=== PATIENT | female | born 1965 | race Caucasian/White ===

== ENCOUNTER → 2018-09-12 14:15 | Outpatient (CLI) | payer MEDICARE, MEDICAID, SELFPAY ==
--- NOTE | 2018-09-12 | DI.CT.S_ITS ---
PROCEDURE: CT ABDOMEN PELVIS W CON INDICATIONS: ABDOMINAL PAIN TECHNIQUE: After the administration of oral and intravenous contrast, 5 mm thick sections acquired from the diaphragms to the symphysis. 5 mm thick coronal and sagittal reformats were performed. For radiation dose reduction, the following was used: automated exposure control, adjustment of mA and/or kV according to patient size. COMPARISON: None. FINDINGS: Image quality: Quality of visualization is limited by extensive metal artifact from surgical lips over the epigastrium and at the esophagogastric junction region of the upper left abdomen.. ABDOMEN: Lung bases: Lung bases are clear. Heart size is normal. Solid organs: Liver is normal in size and enhancement. Gallbladder appears surgically absent. Biliary system is non-dilated. Pancreas enhances normally. Spleen is normal in size and enhancement. No adrenal nodules. Kidneys are normal in size and enhancement, without hydronephrosis. Peritoneum and bowel: Stomach, small bowel, and colon loops are normal in caliber and wall thickness. No free fluid or air. There is moderate colonic obstipation. This becomes more prominent as the pelvis is approached. Nodes and vessels: No retroperitoneal or mesenteric adenopathy. Aorta and inferior vena cava are normal in caliber. Miscellaneous: No ventral hernias. PELVIS: Genitourinary: Bladder wall thickness is normal. Miscellaneous: No inguinal hernias or adenopathy. Relatively prominent colonic obstipation within the rectum and sigmoid area. A definite intestinal obstruction or perforation is not found. Bones: No suspicious bony lesions. No vertebral body compression fractures. IMPRESSION: Extensive surgical clips as discussed over the epigastrium and left upper quadrant, producing metal artifact partially obscuring visualization of portions of the left abdomen. More inferiorly it is noted that oral contrast has transited through much of the small bowel but has not extended into the ascending colon and there is colonic obstipation involving the right and left colon and sigmoid and rectum that is relatively prominent in this patient. Dictated by: Giorgio Muse M.D. on 09/12/2018 at 16:19 Approved by: Giorgio Muse M.D. on 09/12/2018 at 16:22
[2018-09-12 15:13] LABS: Alanine Aminotransferase 29 IU/L (9-52); Alkaline Phosphatase 120 U/L (38-126); Aspartate Aminotransferase 30 IU/L (14-36); BUN Creatinine Ratio 18.8 (6-22); Bilirubin Total 0.4 mg/dL (0.2-1.3); Blood Urea Nitrogen 15 mg/dL (7-17); Calcium 9.2 mg/dL (8.4-10.2); Carbon Dioxide 26 mmol/L (22-32); Chloride 103 mmol/L (98-107); Estimated Glomerular Filt Rate > 60.0 mL/min (>60); HEMOLYSIS < 15 (0-50); Lipase 107 U/L (23-300); Potassium 3.5 mmol/L (3.4-5.1); Sodium 143 mmol/L (137-145)
[2018-09-12 15:14] LABS: Add Manual Diff / Slide Review NO; Basophils Absolute Auto 100 /uL (0-100); Basophils Percent Auto 1.1 % (0-2); Eosinophils Absolute Auto 100 /uL (0-450); Hematocrit 34.8 % (36-46); Lymphocytes Absolute Auto 3900 /uL (1100-4500); Lymphocytes Percent Auto 43.7 % (25-40); Mean Corpuscular HGB Conc 31.6 % (30-36); Mean Corpuscular Hemoglobin 23.6 PG (26-34); Mean Corpuscular Volume 74.8 fL (80-100); Monocytes Absolute Auto 900 /uL (0-900); Monocytes Percent Auto 9.6 % (3-14); Neutrophils Absolute Auto 4000 /uL (1500-7000); Neutrophils Percent Auto 44.6 % (50-75); Platelet Count 321 X10^3/uL (150-400); Red Blood Cell Count 4.66 X10^6/uL (4.0-5.2)
[2018-09-12 15:29] LABS: Glucose 30 mg/dL (70-100)
== END ==
PROVIDERS: PCP Internal Medicine; Visit Provider Internal Medicine
DX: R10.84 Generalized abdominal pain (principal); K59.00 Constipation, unspecified
CPT/HCPCS: 36415; 74177; 80048; 82247; 83690; 84075; 84450; 84460; 85025

== ENCOUNTER 2018-09-14 13:16 | Emergency (ER) | payer MEDICARE, MEDICAID, SELFPAY ==
[2018-09-14 13:24] VITALS: BP 149/76; PULSE 69; RESP 16; TEMP 37; O2SAT 97; BMI 20.9
--- NOTE | 2018-09-14 13:41 | ED.ABDPAIN ---
HPI - Abdominal Pain <Tiara Arzola PA-C - Last Filed: 09/14/18 21:15> General Chief Complaint: Abdominal Pain Stated Complaint: CONSTIPATION X 1 WEEK Time Seen by Provider: 09/14/18 13:37 Source: patient Mode of arrival: ambulatory Limitations: no limitations History of Present Illness HPI narrative: This 53-year-old female comes to ED secondary to worsening abdominal pain and constipation. She states that she does not have any history of constipation, however she began to have abdominal discomfort maybe 10 days ago, and states that her last large/normal sized bowel movement 1 week ago was very bloody and painful. She has not had a bowel movement since, but states she feels like there is a blockage and stool is leaking around. She states her rectal area is very painful. She states abdominal pain is generalized constant, sometimes gets a little bit better when she changes positions. She states that she had a CT scan done yesterday, and states that she felt like she had to urinate after yesterday, has not urinated since then. She states she has not eaten anything in the last 2 days. She has been having ice chips but little fluid. She states she has nausea but no vomiting. She denies any fever. She denies any recent illness, cough, upper respiratory symptoms, chest pain or dyspnea. She history of a [employer] weight loss procedure, states since then for the last 15 years bowel movements are very regular. She saw her PCP 2 days ago, CT was done and planned for colonoscopy. She has tried [id number] Ex-Lax, milk of magnesia, stool softeners. PCP advised her to start MiraLax, has had only 1 dose of that. Related Data Home Medications Medication Instructions Recorded Confirmed valacyclovir [Valtrex] 1,000 mg PO BID #0 01/28/16 buprenorphine-naloxone 1 film SUBLINGUAL DAILY 09/14/18 escitalopram oxalate 20 mg PO DAILY 09/14/18 09/14/18 gabapentin 300 mg PO QID 09/14/18 09/14/18 naloxone [Narcan] 1 spray INTRANASAL PRN PRN 09/14/18 09/14/18 Previous Rx's Medication Instructions Recorded amoxicillin-pot clavulanate 1 tab PO Q12H #10 tab 09/14/18 [Augmentin] Allergies Allergy/AdvReac Type Severity Reaction Status Date / Time No Known Drug Allergies Allergy Verified 09/14/18 13:26 Review of Systems <Tiara Arzola PA-C - Last Filed: 09/14/18 21:15> Review of Systems ROS Unobtainable: All systems reviewed & are unremarkable except as noted in HPI and below PFSH <Tiara Arzola PA-C - Last Filed: 09/14/18 21:15> Medical History (Updated 09/14/18 @ 17:10 by Tiara Arzola PA-C) Borderline personality disorder (Chronic) Chronic fatigue syndrome with fibromyalgia (Chronic) Depression with anxiety (Chronic) History of pulmonary embolism (Chronic) Vitamin B12 deficiency (Chronic) Surgical History (Updated 09/14/18 @ 14:37 by Tiara Arzola PA-C) Status post biliopancreatic diversion with duodenal switch (Acute) Status post (Chronic) Status post cholecystectomy (Chronic) Status post hysterectomy (Chronic) Social History (Updated 09/14/18 @ 14:37 by Tiara Arzola PA-C) Smoking Status: Former smoker Social History (Updated 09/14/18 @ 14:37 by Tiara Arzola PA-C) Smoking Status: Former smoker Exam <Tiara Arzola PA-C - Last Filed: 09/14/18 21:15> Narrative Exam Narrative: GENERAL APPEARANCE: Patient resting on right side, in NAD HEENT: PERRL, EOMI, no scleral icterus, conjunctivae pink NECK: Supple LUNGS: Clear to auscultation bilaterally. HEART: Rate and rhythm regular, normal S1 and S2, no S3 or S4. ABDOMEN: Soft, nondistended, bowel sounds present x 4 quadrants, no masses palpable, generalized tenderness throughout, no guarding or rebound. No CVAT EXTREMITIES: No edema, no cyanosis DERMATOLOGIC: No jaundice or exanthem NEUROLOGIC: Alert and oriented with normal speech and coordination RECTAL: The perirectal skin is erythematous and chaffed, tender. There is light brown, malodorous stool leakage, no palpable mass stool in vault, occult blood negative x1 Initial Vital Signs Initial Vital Signs: Vital Signs Temperature 98.6 F 09/14/18 13:24 Pulse Rate 69 09/14/18 13:24 Respiratory Rate 16 09/14/18 13:24 Blood Pressure 149/76 H 09/14/18 13:24 Pulse Oximetry 97 09/14/18 13:24 <Albin Maharaj DO - Last Filed: 09/14/18 23:47> Initial Vital Signs Initial Vital Signs: Vital Signs Temperature 98.6 F 09/14/18 13:24 Pulse Rate 69 09/14/18 13:24 Respiratory Rate 16 09/14/18 13:24 Blood Pressure 149/76 H 09/14/18 13:24 Pulse Oximetry 97 09/14/18 13:24 Course <Tiara Arzola PA-C - Last Filed: 09/14/18 21:15> Additional Information: Patient has had thin watery stool, no large volume output. Enema/attempt at disimpaction was ineffective as blockage is proximal to sigmoid. She does not have obstruction but did have urinary retention secondary to the constipation. She had improvement in her pain after catheter placed. She was unable to finish Mag citrate while here but is sipping it down. She elected to have catheter removed and return home. Will add apple juice and prune juice to this and will finish at home. Advised if she starts to have vomiting, feeling worse, or unable to urinate again, she needs to return, and she is agreeable. Did start Augmentin as she did have bacteriuria on cath specimen though has not had any clear evidence of urinary infection. Advised follow-up with PCP and proceed with referral for colonoscopy as had been discussed per last note. Orders Ordered: ED Orders 09/14/18 15:00 Complete Blood Count AUTO DIFF Stat Comprehensive Metabolic Panel Stat Lactate (Lactic Acid) Stat Lipase Stat Magnesium Stat Urine Culture Stat Urine Microscopic Stat Discontinued Medications Amoxicillin/Clavulanate Potassium (Augmentin 500-125 Mg) 1 tab PO NOW ONE Stop: 09/14/18 20:37 Last Admin: 09/14/18 20:52 Dose: 1 tab Ketorolac Tromethamine (Toradol) 30 mg IV NOW ONE Stop: 09/14/18 15:31 Last Admin: 09/14/18 15:40 Dose: 30 mg Magnesium Citrate (Magnesium Citrate) 300 ml PO NOW ONE Stop: 09/14/18 16:53 Last Admin: 09/14/18 17:08 Dose: 300 ml Mineral Oil (Mineral Oil Enema) 1 each MI NOW ONE Stop: 09/14/18 15:19 Last Admin: 09/14/18 16:19 Dose: 1 each Vital Signs - 8 hr 09/14/18 21:05 Pulse Rate 64 Respiratory Rate 17 Blood Pressure [Right Arm] 129/73 Pulse Oximetry 98 <Albin Maharaj DO - Last Filed: 09/14/18 23:47> Orders Ordered: ED Orders 09/14/18 15:00 Complete Blood Count AUTO DIFF Stat Comprehensive Metabolic Panel Stat Lactate (Lactic Acid) Stat Lipase Stat Magnesium Stat Urine Culture Stat Urine Microscopic Stat Discontinued Medications Amoxicillin/Clavulanate Potassium (Augmentin 500-125 Mg) 1 tab PO NOW ONE Stop: 09/14/18 20:37 Last Admin: 09/14/18 20:52 Dose: 1 tab Ketorolac Tromethamine (Toradol) 30 mg IV NOW ONE Stop: 09/14/18 15:31 Last Admin: 09/14/18 15:40 Dose: 30 mg Magnesium Citrate (Magnesium Citrate) 300 ml PO NOW ONE Stop: 09/14/18 16:53 Last Admin: 09/14/18 17:08 Dose: 300 ml Mineral Oil (Mineral Oil Enema) 1 each MI NOW ONE Stop: 09/14/18 15:19 Last Admin: 09/14/18 16:19 Dose: 1 each Vital Signs - 8 hr 09/14/18 21:05 Pulse Rate 64 Respiratory Rate 17 Blood Pressure [Right Arm] 129/73 Pulse Oximetry 98 MDM - Abdominal Pain <Tiara Arzola PA-C - Last Filed: 09/14/18 21:15> Lab Data Result diagrams: 09/14/18 15:00 09/14/18 15:00 Lab Results 09/14/18 09/14/18 09/14/18 Range/Units 15:00 15:00 15:00 WBC 7.4 (4.5-11.0) X10^3/uL RBC 4.35 (4.0-5.2) X10^6/uL Hgb 10.5 L (12.0-16.0) g/dL Hct 32.3 L (36-46) % MCV 74.4 L (80-100) fL MCH 24.0 L (26-34) PG MCHC 32.3 (30-36) % RDW 18.6 H (11.6-14.8) % Plt Count 224 (150-400) X10^3/uL Neut % (Auto) 72.5 (50-75) % Lymph % (Auto) 19.3 L (25-40) % [place] % (Auto) 6.8 (3-14) % Eos % (Auto) 0.6 L (2-4) % Baso % (Auto) 0.8 (0-2) % Neut # (Auto) 5400 (8014-5957) /uL Lymph # (Auto) 1400 (4579-7490) /uL [place] # (Auto) 500 (0-900) /uL Eos # (Auto) 0 (0-450) /uL Baso # (Auto) 100 (0-100) /uL Sodium 138 (137-145) mmol/L Potassium 4.3 (3.4-5.1) mmol/L Chloride 99 (98-107) mmol/L Carbon Dioxide 28 (22-32) mmol/L BUN 11 (7-17) mg/dL Creatinine 0.90 (0.52-1.04) mg/dL Estimated GFR > 60.0 (>60) mL/min BUN/Creatinine Ratio 12.2 (6-22) Glucose 99 (70-100) mg/dL Lactate 0.9 (0.7-2.1) mmol/L Calcium 9.4 (8.4-10.2) mg/dL Magnesium 1.8 (1.6-2.3) mg/dL Total Bilirubin 0.5 (0.2-1.3) mg/dL AST 23 (14-36) IU/L ALT 26 (9-52) IU/L Alkaline Phosphatase 128 H (38-126) U/L Total Protein 7.4 (6.3-8.2) g/dL Albumin 4.2 (3.5-5.0) g/dL Globulin 3.2 (1.7-4.1) g/dL Albumin/Globulin Ratio 1.3 (1.0-2.8) Lipase 94 (23-300) U/L Urine RBC (0-5/HPF) Urine WBC (0-5/HPF) Ur Squamous Epith Cells (0-5/HPF) Urine Bacteria (None) Ur Culture Indicated? 09/14/18 Range/Units 15:00 WBC (4.5-11.0) X10^3/uL RBC (4.0-5.2) X10^6/uL Hgb (12.0-16.0) g/dL Hct (36-46) % MCV (80-100) fL MCH (26-34) PG MCHC (30-36) % RDW (11.6-14.8) % Plt Count (150-400) X10^3/uL Neut % (Auto) (50-75) % Lymph % (Auto) (25-40) % [place] % (Auto) (3-14) % Eos % (Auto) (2-4) % Baso % (Auto) (0-2) % Neut # (Auto) (5079-9606) /uL Lymph # (Auto) (3466-9439) /uL [place] # (Auto) (0-900) /uL Eos # (Auto) (0-450) /uL Baso # (Auto) (0-100) /uL Sodium (137-145) mmol/L Potassium (3.4-5.1) mmol/L Chloride (98-107) mmol/L Carbon Dioxide (22-32) mmol/L BUN (7-17) mg/dL Creatinine (0.52-1.04) mg/dL Estimated GFR (>60) mL/min BUN/Creatinine Ratio (6-22) Glucose (70-100) mg/dL Lactate (0.7-2.1) mmol/L Calcium (8.4-10.2) mg/dL Magnesium (1.6-2.3) mg/dL Total Bilirubin (0.2-1.3) mg/dL AST (14-36) IU/L ALT (9-52) IU/L Alkaline Phosphatase (38-126) U/L Total Protein (6.3-8.2) g/dL Albumin (3.5-5.0) g/dL Globulin (1.7-4.1) g/dL Albumin/Globulin Ratio (1.0-2.8) Lipase (23-300) U/L Urine RBC 1-5/hpf (0-5/HPF) Urine WBC 10-30/hpf H (0-5/HPF) Ur Squamous Epith Cells 0-1 /hpf (0-5/HPF) Urine Bacteria Many (>30) H (None) Ur Culture Indicated? Specimen cultured Point of care testing: Urine Dip Bedside Urine Glucose Negative Bedside Urine Bilirubin + 1 Bedside Urine Ketone - Negative Urine Specific [place] 1.015 Bedside Urine Occult Blood +/- Bedside Urine pH 6.5 Bedside Urine Protein - Negative Bedside Urine Urobilinogen - Negative Bedside Urine Nitrite + Positive Bedside Urine Leukocytes + 70 Esterase Imaging Data Abdominal x-ray: Radiologist's impression: [address] [address] XRay Report Signed Patient: Niki eDy MMR#: [id number] : 1965Acct:[id number] Age/Sex: 53 / FDate of Service: 09/14/18 Loc: ED Accession Number: [id number] Procedure: XR acute abdomen series Ordering Provider: Tiara Arzola P.A-C PROCEDURE: XR ACUTE ABDOMEN SERIES INDICATIONS: obstipation, nausea (CT 2 d ago) TECHNIQUE: One view chest and two views of the abdomen were acquired. COMPARISON: [facility], CT, CT ABDOMEN PELVIS W CON, 09/12/2018, 15:42. FINDINGS: Surgical changes and devices: Surgical clips in the upper abdomen. Chest: Lungs are clear. Heart size is normal. No pleural effusions. No pneumoperitoneum. Abdomen: There is a large amount of stool in colon. There is abundant colonic gas proximal to distal sigmoid colon. No suspicious calcifications. Visualized solid organ contours appear normal. Bones: No suspicious bony lesions. IMPRESSION: A large amount of stool in colon consistent with severe constipation and fecal impaction. Dictated by: Kendell Butler M.D. on 09/14/2018 at 14:40 Approved by: Kendell Butler M.D. on 09/14/2018 at 14:47 <Albin Maharaj DO - Last Filed: 09/14/18 23:47> Lab Data Lab Results 09/14/18 09/14/18 09/14/18 Range/Units 15:00 15:00 15:00 WBC 7.4 (4.5-11.0) X10^3/uL RBC 4.35 (4.0-5.2) X10^6/uL Hgb 10.5 L (12.0-16.0) g/dL Hct 32.3 L (36-46) % MCV 74.4 L (80-100) fL MCH 24.0 L (26-34) PG MCHC 32.3 (30-36) % RDW 18.6 H (11.6-14.8) % Plt Count 224 (150-400) X10^3/uL Neut % (Auto) 72.5 (50-75) % Lymph % (Auto) 19.3 L (25-40) % [place] % (Auto) 6.8 (3-14) % Eos % (Auto) 0.6 L (2-4) % Baso % (Auto) 0.8 (0-2) % Neut # (Auto) 5400 (4551-7637) /uL Lymph # (Auto) 1400 (7507-9589) /uL [place] # (Auto) 500 (0-900) /uL Eos # (Auto) 0 (0-450) /uL Baso # (Auto) 100 (0-100) /uL Sodium 138 (137-145) mmol/L Potassium 4.3 (3.4-5.1) mmol/L Chloride 99 (98-107) mmol/L Carbon Dioxide 28 (22-32) mmol/L BUN 11 (7-17) mg/dL Creatinine 0.90 (0.52-1.04) mg/dL Estimated GFR > 60.0 (>60) mL/min BUN/Creatinine Ratio 12.2 (6-22) Glucose 99 (70-100) mg/dL Lactate 0.9 (0.7-2.1) mmol/L Calcium 9.4 (8.4-10.2) mg/dL Magnesium 1.8 (1.6-2.3) mg/dL Total Bilirubin 0.5 (0.2-1.3) mg/dL AST 23 (14-36) IU/L ALT 26 (9-52) IU/L Alkaline Phosphatase 128 H (38-126) U/L Total Protein 7.4 (6.3-8.2) g/dL Albumin 4.2 (3.5-5.0) g/dL Globulin 3.2 (1.7-4.1) g/dL Albumin/Globulin Ratio 1.3 (1.0-2.8) Lipase 94 (23-300) U/L Urine RBC (0-5/HPF) Urine WBC (0-5/HPF) Ur Squamous Epith Cells (0-5/HPF) Urine Bacteria (None) Ur Culture Indicated? 09/14/18 Range/Units 15:00 WBC (4.5-11.0) X10^3/uL RBC (4.0-5.2) X10^6/uL Hgb (12.0-16.0) g/dL Hct (36-46) % MCV (80-100) fL MCH (26-34) PG MCHC (30-36) % RDW (11.6-14.8) % Plt Count (150-400) X10^3/uL Neut % (Auto) (50-75) % Lymph % (Auto) (25-40) % [place] % (Auto) (3-14) % Eos % (Auto) (2-4) % Baso % (Auto) (0-2) % Neut # (Auto) (0437-8086) /uL Lymph # (Auto) (0307-1091) /uL [place] # (Auto) (0-900) /uL Eos # (Auto) (0-450) /uL Baso # (Auto) (0-100) /uL Sodium (137-145) mmol/L Potassium (3.4-5.1) mmol/L Chloride (98-107) mmol/L Carbon Dioxide (22-32) mmol/L BUN (7-17) mg/dL Creatinine (0.52-1.04) mg/dL Estimated GFR (>60) mL/min BUN/Creatinine Ratio (6-22) Glucose (70-100) mg/dL Lactate (0.7-2.1) mmol/L Calcium (8.4-10.2) mg/dL Magnesium (1.6-2.3) mg/dL Total Bilirubin (0.2-1.3) mg/dL AST (14-36) IU/L ALT (9-52) IU/L Alkaline Phosphatase (38-126) U/L Total Protein (6.3-8.2) g/dL Albumin (3.5-5.0) g/dL Globulin (1.7-4.1) g/dL Albumin/Globulin Ratio (1.0-2.8) Lipase (23-300) U/L Urine RBC 1-5/hpf (0-5/HPF) Urine WBC 10-30/hpf H (0-5/HPF) Ur Squamous Epith Cells 0-1 /hpf (0-5/HPF) Urine Bacteria Many (>30) H (None) Ur Culture Indicated? Specimen cultured Point of care testing: Urine Dip Bedside Urine Glucose Negative Bedside Urine Bilirubin + 1 Bedside Urine Ketone - Negative Urine Specific [place] 1.015 Bedside Urine Occult Blood +/- Bedside Urine pH 6.5 Bedside Urine Protein - Negative Bedside Urine Urobilinogen - Negative Bedside Urine Nitrite + Positive Bedside Urine Leukocytes + 70 Esterase Discharge Plan Departure Patient Disposition: Home Clinical Impression: Constipation Qualifiers: Constipation type: unspecified constipation type Qualified Code(s): K59.00 - Constipation, unspecified UTI (urinary tract infection) Qualifiers: Urinary tract infection type: acute cystitis Hematuria presence: without hematuria Qualified Code(s): N30.00 - Acute cystitis without hematuria Discharge Date/Time: 09/14/18 21:08 Interventions: ED Discharge Assessment Last Done: 09/14/18 21:07 Instructions: DI for Urinary Tract Infection (UTI), DI for Constipation Activity Restrictions/Additional Instructions: Please return as we talked about if you are unable to urinate or have new symptoms such as vomiting or fever. Please finish the magnesium citrate even though it tastes bitter, it should help you and your bowels. You can also take a dose of MiraLax mixed with 4-6 oz each of prune juice and apple juice, and a dose of liquid Maalox or Mylanta once daily which is more gentle and will help you continue to move your bowels. Since the source of your constipation is not clear, it is important to proceed with further testing including the colonoscopy that Dr. Sánchez was doing a referral for. Please call her office on Monday and let them know were seen in the emergency room so that you can set up follow-up. There were some bacteria in your urine today, and since it was a catheter specimen, we have given you a dose of Augmentin tonight and I have sent in a prescription for you to continue tomorrow (please pick this up at the pharmacy). That tends to have a side effect if any of causing loose stools, which also may help your bowels. Prescriptions: New amoxicillin-pot clavulanate [Augmentin] 500-125 mg tablet 1 tab PO Q12H Qty: 10 RF: 0 No Action valacyclovir [Valtrex] 1,000 MG tablet 1,000 mg PO BID Qty: 0 RF: 0 gabapentin 300 mg capsule 300 mg PO QID RF: 0 escitalopram oxalate 20 mg tablet 20 mg PO DAILY RF: 0 buprenorphine-naloxone 8-2 mg film 1 film sublingual DAILY RF: 0 Narcan 4 mg/actuation spray,non-aerosol 1 spray intranasal PRN PRN (Reason: Opiate Reversal) RF: 0 Referrals: Jazmyn Sánchez MD [Primary Care Provider] - <Albin Maharaj DO - Last Filed: 09/14/18 23:47> Cosign ED Attending Ramon Attestation: I was available for consultation during this patient's emergency department encounter
--- NOTE | 2018-09-14 13:51 | PC.NURSE ---
States now having difficulty to urinate. States has been leaking loose stool.
--- NOTE | 2018-09-14 13:57 | DI.RAD.S_ITS ---
PROCEDURE: XR ACUTE ABDOMEN SERIES INDICATIONS: obstipation, nausea (CT 2 d ago) TECHNIQUE: One view chest and two views of the abdomen were acquired. COMPARISON: [facility], CT, CT ABDOMEN PELVIS W CON, 09/12/2018, 15:42. FINDINGS: Surgical changes and devices: Surgical clips in the upper abdomen. Chest: Lungs are clear. Heart size is normal. No pleural effusions. No pneumoperitoneum. Abdomen: There is a large amount of stool in colon. There is abundant colonic gas proximal to distal sigmoid colon. No suspicious calcifications. Visualized solid organ contours appear normal. Bones: No suspicious bony lesions. IMPRESSION: A large amount of stool in colon consistent with severe constipation and fecal impaction. Dictated by: Kendell Butler M.D. on 09/14/2018 at 14:40 Approved by: Kendell Butler M.D. on 09/14/2018 at 14:47
--- NOTE | 2018-09-14 14:34 | ED_ITS ---
HPI - Abdominal Pain <Tiara Arzola PA-C - Last Filed: 09/14/18 21:15> General Chief Complaint: Abdominal Pain Stated Complaint: CONSTIPATION X 1 WEEK Time Seen by Provider: 09/14/18 13:37 Source: patient Mode of arrival: ambulatory Limitations: no limitations History of Present Illness HPI narrative: This 53-year-old female comes to ED secondary to worsening abdominal pain and constipation. She states that she does not have any history of constipation, however she began to have abdominal discomfort maybe 10 days ago, and states that her last large/normal sized bowel movement 1 week ago was very bloody and painful. She has not had a bowel movement since, but states she feels like there is a blockage and stool is leaking around. She states her rectal area is very painful. She states abdominal pain is generalized constant, sometimes gets a little bit better when she changes positions. She states that she had a CT scan done yesterday, and states that she felt like she had to urinate after yesterday, has not urinated since then. She states she has not eaten anything in the last 2 days. She has been having ice chips but little fluid. She states she has nausea but no vomiting. She denies any fever. She denies any recent illness, cough, upper respiratory symptoms, chest pain or dyspnea. She history of a BPD weight loss procedure, states since then for the last 15 years bowel movements are very regular. She saw her PCP 2 days ago, CT was done and planned for colonoscopy. She has tried [id number] Ex-Lax, milk of magnesia, stool softeners. PCP advised her to start MiraLax, has had only 1 dose of that. Related Data Home Medications Medication Instructions Recorded Confirmed valacyclovir [Valtrex] 1,000 mg PO BID #0 01/28/16 buprenorphine-naloxone 1 film SUBLINGUAL DAILY 09/14/18 escitalopram oxalate 20 mg PO DAILY 09/14/18 09/14/18 gabapentin 300 mg PO QID 09/14/18 09/14/18 naloxone [Narcan] 1 spray INTRANASAL PRN PRN 09/14/18 09/14/18 Previous Rx's Medication Instructions Recorded amoxicillin-pot clavulanate 1 tab PO Q12H #10 tab 09/14/18 [Augmentin] Allergies Allergy/AdvReac Type Severity Reaction Status Date / Time No Known Drug Allergies Allergy Verified 09/14/18 13:26 Review of Systems <Tiara Arzola PA-C - Last Filed: 09/14/18 21:15> Review of Systems ROS Unobtainable: All systems reviewed & are unremarkable except as noted in HPI and below PFSH <Tiara Arzola PA-C - Last Filed: 09/14/18 21:15> Medical History (Updated 09/14/18 @ 17:10 by Tiara Arzola PA-C) Borderline personality disorder (Chronic) Chronic fatigue syndrome with fibromyalgia (Chronic) Depression with anxiety (Chronic) History of pulmonary embolism (Chronic) Vitamin B12 deficiency (Chronic) Surgical History (Updated 09/14/18 @ 14:37 by Tiara Arzola PA-C) Status post biliopancreatic diversion with duodenal switch (Acute) Status post (Chronic) Status post cholecystectomy (Chronic) Status post hysterectomy (Chronic) Social History (Updated 09/14/18 @ 14:37 by Tiara Arzola PA-C) Smoking Status: Former smoker Social History (Updated 09/14/18 @ 14:37 by Tiara Arzola PA-C) Smoking Status: Former smoker Exam <Tiara Arzola PA-C - Last Filed: 09/14/18 21:15> Narrative Exam Narrative: GENERAL APPEARANCE: Patient resting on right side, in NAD HEENT: PERRL, EOMI, no scleral icterus, conjunctivae pink NECK: Supple LUNGS: Clear to auscultation bilaterally. HEART: Rate and rhythm regular, normal S1 and S2, no S3 or S4. ABDOMEN: Soft, nondistended, bowel sounds present x 4 quadrants, no masses palpable, generalized tenderness throughout, no guarding or rebound. No CVAT EXTREMITIES: No edema, no cyanosis DERMATOLOGIC: No jaundice or exanthem NEUROLOGIC: Alert and oriented with normal speech and coordination RECTAL: The perirectal skin is erythematous and chaffed, tender. There is light brown, malodorous stool leakage, no palpable mass stool in vault, occult b lood negative x1 Initial Vital Signs Initial Vital Signs: Vital Signs Temperature 98.6 F 09/14/18 13:24 Pulse Rate 69 09/14/18 13:24 Respiratory Rate 16 09/14/18 13:24 Blood Pressure 149/76 H 09/14/18 13:24 Pulse Oximetry 97 09/14/18 13:24 <Albin Maharaj DO - Last Filed: 09/14/18 23:47> Initial Vital Signs Initial Vital Signs: Vital Signs Temperature 98.6 F 09/14/18 13:24 Pulse Rate 69 09/14/18 13:24 Respiratory Rate 16 09/14/18 13:24 Blood Pressure 149/76 H 09/14/18 13:24 Pulse Oximetry 97 09/14/18 13:24 Course <Tiara Arzola PA-C - Last Filed: 09/14/18 21:15> Additional Information: Patient has had thin watery stool, no large volume output. Enema/attempt at disimpaction was ineffective as blockage is proximal to sigmoid. She does not have obstruction but did have urinary retention secondary to the constipation. She had improvement in her pain after catheter placed. She was unable to finish Mag citrate while here but is sipping it down. She elected to have catheter removed and return home. Will add apple juice and prune juice to this and will finish at home. Advised if she starts to have vomiting, feeling worse, or unable to urinate again, she needs to return, and she is agreeable. Did start Augmentin as she did have bacteriuria on cath specimen though has not had any clear evidence of urinary infection. Advised follow-up with PCP and proceed with referral for colonoscopy as had been discussed per last note. Orders Ordered: ED Orders 09/14/18 15:00 Complete Blood Count AUTO DIFF Stat Comprehensive Metabolic Panel Stat Lactate (Lactic Acid) Stat Lipase Stat Magnesium Stat Urine Culture Stat Urine Microscopic Stat Discontinued Medications Amoxicillin/Clavulanate Potassium (Augmentin 500-125 Mg) 1 tab PO NOW ONE Stop: 09/14/18 20:37 Last Admin: 09/14/18 20:52 Dose: 1 tab Ketorolac Tromethamine (Toradol) 30 mg IV NOW ONE Stop: 09/14/18 15:31 Last Admin: 09/14/18 15:40 Dose: 30 mg Magnesium Citrate (Magnesium Citrate) 300 ml PO NOW ONE Stop: 09/14/18 16:53 Last Admin: 09/14/18 17:08 Dose: 300 ml Mineral Oil (Mineral Oil Enema) 1 each [place] NOW ONE Stop: 09/14/18 15:19 Last Admin: 09/14/18 16:19 Dose: 1 each Vital Signs - 8 hr 09/14/18 21:05 Pulse Rate 64 Respiratory Rate 17 Blood Pressure [Right Arm] 129/73 Pulse Oximetry 98 <Albin Maharaj DO - Last Filed: 09/14/18 23:47> Orders Ordered: ED Orders 09/14/18 15:00 Complete Blood Count AUTO DIFF Stat Comprehensive Metabolic Panel Stat Lactate (Lactic Acid) Stat Lipase Stat Magnesium Stat Urine Culture Stat Urine Microscopic Stat Discontinued Medications Amoxicillin/Clavulanate Potassium (Augmentin 500-125 Mg) 1 tab PO NOW ONE Stop: 09/14/18 20:37 Last Admin: 09/14/18 20:52 Dose: 1 tab Ketorolac Tromethamine (Toradol) 30 mg IV NOW ONE Stop: 09/14/18 15:31 Last Admin: 09/14/18 15:40 Dose: 30 mg Magnesium Citrate (Magnesium Citrate) 300 ml PO NOW ONE Stop: 09/14/18 16:53 Last Admin: 09/14/18 17:08 Dose: 300 ml Mineral Oil (Mineral Oil Enema) 1 each [place] NOW ONE Stop: 09/14/18 15:19 Last Admin: 09/14/18 16:19 Dose: 1 each Vital Signs - 8 hr 09/14/18 21:05 Pulse Rate 64 Respiratory Rate 17 Blood Pressure [Right Arm] 129/73 Pulse Oximetry 98 MDM - Abdominal Pain <Tiara Arzola PA-C - Last Filed: 09/14/18 21:15> Lab Data Result diagrams: 09/14/18 15:00 09/14/18 15:00 Lab Results 09/14/18 09/14/18 09/14/18 Range/Units 15:00 15:00 15:00 WBC 7.4 (4.5-11.0) X10^3/uL RBC 4.35 (4.0-5.2) X10^6/uL Hgb 10.5 L (12.0-16.0) g/dL Hct 32.3 L (36-46) % MCV 74.4 L (80-100) fL MCH 24.0 L (26-34) PG MCHC 32.3 (30-36) % RDW 18.6 H (11.6-14.8) % Plt Count 224 (150-400) X10^3/uL Neut % (Auto) 72.5 (50-75) % Lymph % (Auto) 19.3 L (25-40) % [place] % (Auto) 6.8 (3-14) % Eos % (Auto) 0.6 L (2-4) % Baso % (Auto) 0.8 (0-2) % Neut # (Auto) 5400 (6183-7934) /uL Lymph # (Auto) 1400 (7957-3370) /uL [place] # (Auto) 500 (0-900) /uL Eos # (Auto) 0 (0-450) /uL Baso # (Auto) 100 (0-100) /uL Sodium 138 (137-145) mmol/L Potassium 4.3 (3.4-5.1) mmol/L Chloride 99 (98-107) mmol/L Carbon Dioxide 28 (22-32) mmol/L BUN 11 (7-17) mg/dL Creatinine 0.90 (0.52-1.04) mg/dL Estimated GFR > 60.0 (>60) mL/min BUN/Creatinine Ratio 12.2 (6-22) Glucose 99 (70-100) mg/dL Lactate 0.9 (0.7-2.1) mmol/L Calcium 9.4 (8.4-10.2) mg/dL Magnesium 1.8 (1.6-2.3) mg/dL Total Bilirubin 0.5 (0.2-1.3) mg/dL AST 23 (14-36) IU/L ALT 26 (9-52) IU/L Alkaline Phosphatase 128 H (38-126) U/L Total Protein 7.4 (6.3-8.2) g/dL Albumin 4.2 (3.5-5.0) g/dL Globulin 3.2 (1.7-4.1) g/dL Albumin/Globulin Ratio 1.3 (1.0-2.8) Lipase 94 (23-300) U/L Urine RBC (0-5/HPF) Urine WBC (0-5/HPF) Ur Squamous Epith Cells (0-5/HPF) Urine Bacteria (None) Ur Culture Indicated? 09/14/18 Range/Units 15:00 WBC (4.5-11.0) X10^3/uL RBC (4.0-5.2) X10^6/uL Hgb (12.0-16.0) g/dL Hct (36-46) % MCV (80-100) fL MCH (26-34) PG MCHC (30-36) % RDW (11.6-14.8) % Plt Count (150-400) X10^3/uL Neut % (Auto) (50-75) % Lymph % (Auto) (25-40) % [place] % (Auto) (3-14) % Eos % (Auto) (2-4) % Baso % (Auto) (0-2) % Neut # (Auto) (4598-3390) /uL Lymph # (Auto) (2190-9479) /uL [place] # (Auto) (0-900) /uL Eos # (Auto) (0-450) /uL Baso # (Auto) (0-100) /uL Sodium (137-145) mmol/L Potassium (3.4-5.1) mmol/L Chloride (98-107) mmol/L Carbon Dioxide (22-32) mmol/L BUN (7-17) mg/dL Creatinine (0.52-1.04) mg/dL Estimated GFR (>60) mL/min BUN/Creatinine Ratio (6-22) Glucose (70-100) mg/dL Lactate (0.7-2.1) mmol/L Calcium (8.4-10.2) mg/dL Magnesium (1.6-2.3) mg/dL Total Bilirubin (0.2-1.3) mg/dL AST (14-36) IU/L ALT (9-52) IU/L Alkaline Phosphatase (38-126) U/L Total Protein (6.3-8.2) g/dL Albumin (3.5-5.0) g/dL Globulin (1.7-4.1) g/dL Albumin/Globulin Ratio (1.0-2.8) Lipase (23-300) U/L Urine RBC 1-5/hpf (0-5/HPF) Urine WBC 10-30/hpf H (0-5/HPF) Ur Squamous Epith Cells 0-1 /hpf (0-5/HPF) Urine Bacteria Many (>30) H (None) Ur Culture Indicated? Specimen cultured Point of care testing: Urine Dip Bedside Urine Glucose Negative Bedside Urine Bilirubin + 1 Bedside Urine Ketone - Negative Urine Specific [place] 1.015 Bedside Urine Occult Blood +/- Bedside Urine pH 6.5 Bedside Urine Protein - Negative Bedside Urine Urobilinogen - Negative Bedside Urine Nitrite + Positive Bedside Urine Leukocytes + 70 Esterase Imaging Data Abdominal x-ray: Radiologist's impression: [address] [address] XRay Report Signed Patient: Niki Dey MMR#: [id number] : 1965Acct:[id number] Age/Sex: 53 / FDate of Service: 09/14/18 Loc: ED Accession Number: [id number] Procedure: XR acute abdomen series Ordering Provider: Tiara Arzola P.A-C PROCEDURE: XR ACUTE ABDOMEN SERIES INDICATIONS: obstipation, nausea (CT 2 d ago) TECHNIQUE: One view chest and two views of the abdomen were acquired. COMPARISON: [facility], CT, CT ABDOMEN PELVIS W CON, 09/12/2018, 15:42. FINDINGS: Surgical changes and devices: Surgical clips in the upper abdomen. Chest: Lungs are clear. Heart size is normal. No pleural effusions. No pneumoperitoneum. Abdomen: There is a large amount of stool in colon. There is abundant colonic gas proximal to distal sigmoid colon. No suspicious calcifications. Visualized solid organ contours appear normal. Bones: No suspicious bony lesions. IMPRESSION: A large amount of stool in colon consistent with severe constipation and fecal impaction. Dictated by: Kendell Butler M.D. on 09/14/2018 at 14:40 Approved by: Kendell Butler M.D. on 09/14/2018 at 14:47 <Albin Maharaj DO - Last Filed: 09/14/18 23:47> Lab Data Lab Results 09/14/18 09/14/18 09/14/18 Range/Units 15:00 15:00 15:00 WBC 7.4 (4.5-11.0) X10^3/uL RBC 4.35 (4.0-5.2) X10^6/uL Hgb 10.5 L (12.0-16.0) g/dL Hct 32.3 L (36-46) % MCV 74.4 L (80-100) fL MCH 24.0 L (26-34) PG MCHC 32.3 (30-36) % RDW 18.6 H (11.6-14.8) % Plt Count 224 (150-400) X10^3/uL Neut % (Auto) 72.5 (50-75) % Lymph % (Auto) 19.3 L (25-40) % [place] % (Auto) 6.8 (3-14) % Eos % (Auto) 0.6 L (2-4) % Baso % (Auto) 0.8 (0-2) % Neut # (Auto) 5400 (4651-6165) /uL Lymph # (Auto) 1400 (6486-4423) /uL [place] # (Auto) 500 (0-900) /uL Eos # (Auto) 0 (0-450) /uL Baso # (Auto) 100 (0-100) /uL Sodium 138 (137-145) mmol/L Potassium 4.3 (3.4-5.1) mmol/L Chloride 99 (98-107) mmol/L Carbon Dioxide 28 (22-32) mmol/L BUN 11 (7-17) mg/dL Creatinine 0.90 (0.52-1.04) mg/dL Estimated GFR > 60.0 (>60) mL/min BUN/Creatinine Ratio 12.2 (6-22) Glucose 99 (70-100) mg/dL Lactate 0.9 (0.7-2.1) mmol/L Calcium 9.4 (8.4-10.2) mg/dL Magnesium 1.8 (1.6-2.3) mg/dL Total Bilirubin 0.5 (0.2-1.3) mg/dL AST 23 (14-36) IU/L ALT 26 (9-52) IU/L Alkaline Phosphatase 128 H (38-126) U/L Total Protein 7.4 (6.3-8.2) g/dL Albumin 4.2 (3.5-5.0) g/dL Globulin 3.2 (1.7-4.1) g/dL Albumin/Globulin Ratio 1.3 (1.0-2.8) Lipase 94 (23-300) U/L Urine RBC (0-5/HPF) Urine WBC (0-5/HPF) Ur Squamous Epith Cells (0-5/HPF) Urine Bacteria (None) Ur Culture Indicated? 09/14/18 Range/Units 15:00 WBC (4.5-11.0) X10^3/uL RBC (4.0-5.2) X10^6/uL Hgb (12.0-16.0) g/dL Hct (36-46) % MCV (80-100) fL MCH (26-34) PG MCHC (30-36) % RDW (11.6-14.8) % Plt Count (150-400) X10^3/uL Neut % (Auto) (50-75) % Lymph % (Auto) (25-40) % [place] % (Auto) (3-14) % Eos % (Auto) (2-4) % Baso % (Auto) (0-2) % Neut # (Auto) (8463-5445) /uL Lymph # (Auto) (9937-6794) /uL [place] # (Auto) (0-900) /uL Eos # (Auto) (0-450) /uL Baso # (Auto) (0-100) /uL Sodium (137-145) mmol/L Potassium (3.4-5.1) mmol/L Chloride (98-107) mmol/L Carbon Dioxide (22-32) mmol/L BUN (7-17) mg/dL Creatinine (0.52-1.04) mg/dL Estimated GFR (>60) mL/min BUN/Creatinine Ratio (6-22) Glucose (70-100) mg/dL Lactate (0.7-2.1) mmol/L Calcium (8.4-10.2) mg/dL Magnesium (1.6-2.3) mg/dL Total Bilirubin (0.2-1.3) mg/dL AST (14-36) IU/L ALT (9-52) IU/L Alkaline Phosphatase (38-126) U/L Total Protein (6.3-8.2) g/dL Albumin (3.5-5.0) g/dL Globulin (1.7-4.1) g/dL Albumin/Globulin Ratio (1.0-2.8) Lipase (23-300) U/L Urine RBC 1-5/hpf (0-5/HPF) Urine WBC 10-30/hpf H (0-5/HPF) Ur Squamous Epith Cells 0-1 /hpf (0-5/HPF) Urine Bacteria Many (>30) H (None) Ur Culture Indicated? Specimen cultured Point of care testing: Urine Dip Bedside Urine Glucose Negative Bedside Urine Bilirubin + 1 Bedside Urine Ketone - Negative Urine Specific [place] 1.015 Bedside Urine Occult Blood +/- Bedside Urine pH 6.5 Bedside Urine Protein - Negative Bedside Urine Urobilinogen - Negative Bedside Urine Nitrite + Positive Bedside Urine Leukocytes + 70 Esterase Discharge Plan Departure Patient Disposition: Home Clinical Impression: Constipation Qualifiers: Constipation type: unspecified constipation type Qualified Code(s): K59.00 - Constipation, unspecified UTI (urinary tract infection) Qualifiers: Urinary tract infection type: acute cystitis Hematuria presence: without hematuria Qualified Code(s): N30.00 - Acute cystitis without hematuria Discharge Date/Time: 09/14/18 21:08 Interventions: ED Discharge Assessment Last Done: 09/14/18 21:07 Instructions: DI for Urinary Tract Infection (UTI), DI for Constipation Activity Restrictions/Additional Instructions: Please return as we talked about if you are unable to urinate or have new symp toms such as vomiting or fever. Please finish the magnesium citrate even though it tastes bitter, it should help you and your bowels. You can also take a dose of MiraLax mixed with 4-6 oz each of prune juice and apple juice, and a dose of liquid Maalox or Mylanta once daily which is more gentle and will help you continue to move your bowels. Since the source of your constipation is not clear, it is important to proceed with further testing including the colonoscopy that Dr. Sánchez was doing a referral for. Please call her office on Monday and let them know were seen in the emergency room so that you can set up follow-up. There were some bacteria in your urine today, and since it was a catheter specimen, we have given you a dose of Augmentin tonight and I have sent in a prescription for you to continue tomorrow (please pick this up at the pharmacy). That tends to have a side effect if any of causing loose stools, which also may help your bowels. Prescriptions: New amoxicillin-pot clavulanate [Augmentin] 500-125 mg tablet 1 tab PO Q12H Qty: 10 RF: 0 No Action valacyclovir [Valtrex] 1,000 MG tablet 1,000 mg PO BID Qty: 0 RF: 0 gabapentin 300 mg capsule 300 mg PO QID RF: 0 escitalopram oxalate 20 mg tablet 20 mg PO DAILY RF: 0 buprenorphine-naloxone 8-2 mg film 1 film sublingual DAILY RF: 0 Narcan 4 mg/actuation spray,non-aerosol 1 spray intranasal PRN PRN (Reason: Opiate Reversal) RF: 0 Referrals: Jazmyn Sánchez MD [Primary Care Provider] - <Albin Maharaj DO - Last Filed: 09/14/18 23:47> Cosign ED Attending Cosignature Attestation: I was available for consultation during this patient's emergency department encounter
[2018-09-14 15:09] LABS: Add Manual Diff / Slide Review NO; Basophils Absolute Auto 100 /uL (0-100); Basophils Percent Auto 0.8 % (0-2); Eosinophils Absolute Auto 0 /uL (0-450); Eosinophils Percent Auto 0.6 % (2-4); Hematocrit 32.3 % (36-46); Hemoglobin 10.5 g/dL (12.0-16.0); Lymphocytes Absolute Auto 1400 /uL (1100-4500); Lymphocytes Percent Auto 19.3 % (25-40); Mean Corpuscular HGB Conc 32.3 % (30-36); Mean Corpuscular Volume 74.4 fL (80-100); Monocytes Absolute Auto 500 /uL (0-900); Monocytes Percent Auto 6.8 % (3-14); Neutrophils Absolute Auto 5400 /uL (1500-7000); Neutrophils Percent Auto 72.5 % (50-75); Platelet Count 224 X10^3/uL (150-400); Red Blood Cell Count 4.35 X10^6/uL (4.0-5.2); Red Cell Distribution Width 18.6 % (11.6-14.8); White Blood Cell Count 7.4 X10^3/uL (4.5-11.0)
[2018-09-14 15:20] LABS: Alanine Aminotransferase 26 IU/L (9-52); Albumin 4.2 g/dL (3.5-5.0); Albumin Globulin Ratio 1.3 (1.0-2.8); Alkaline Phosphatase 128 U/L (38-126); Aspartate Aminotransferase 23 IU/L (14-36); BUN Creatinine Ratio 12.2 (6-22); Bilirubin Total 0.5 mg/dL (0.2-1.3); Blood Urea Nitrogen 11 mg/dL (7-17); Calcium 9.4 mg/dL (8.4-10.2); Carbon Dioxide 28 mmol/L (22-32); Chloride 99 mmol/L (98-107); Estimated Glomerular Filt Rate > 60.0 mL/min (>60); Globulin 3.2 g/dL (1.7-4.1); Glucose 99 mg/dL (70-100); HEMOLYSIS < 15 (0-50); Lipase 94 U/L (23-300); Magnesium 1.8 mg/dL (1.6-2.3); Potassium 4.3 mmol/L (3.4-5.1); Sodium 138 mmol/L (137-145); Total Protein 7.4 g/dL (6.3-8.2)
[2018-09-14 15:21] LABS: Lactate (Lactic Acid) 0.9 mmol/L (0.7-2.1)
[2018-09-14] MEDS: KETOROLAC 60 MG/2 ML VIAL 30 MG IV (15:40)
[2018-09-14 15:48] LABS: Bacteria Urine Many (>30); Culture Indicated Urine Specimen Cultured; RBC Urine 1-5/HPF (0-5/HPF); Squamous Epithelial Cell Urine 0-1 /HPF (0-5/HPF); WBC Urine 10-30/HPF (0-5/HPF)
[2018-09-14] MEDS: MINERAL OIL 1 EACH ENEMA PR (16:19)
[2018-09-14] MEDS: MAGNESIUM CITRATE 300 ML SOLUTION PO (17:08)
[2018-09-14] MEDS: AMOXICILLIN/CLAV 500/125 MG 1 TAB PO (20:52)
[2018-09-14 21:05] VITALS: BP 129/73; PULSE 64; RESP 17; O2SAT 98
== END 2018-09-14 21:08 | disposition home or self-care (01) ==
PROVIDERS: Emergency Provider Internal Medicine; PCP Internal Medicine
DX: K59.00 Constipation, unspecified (principal); N30.00 Acute cystitis without hematuria
CPT/HCPCS: 36591; 51701; 51798; 74022; 80053; 81003; 81015; 83605; 83690; 83735; 85025; 87077; 87086; 87186; 96374; 99283; 99284; J1885

== ENCOUNTER 2018-09-15 03:05 | Emergency (ER) | payer MEDICARE, MEDICAID, SELFPAY ==
--- NOTE | 2018-09-15 03:08 | ED.GENADULT ---
HPI - General Adult General Chief complaint: Abdominal Pain Stated complaint: constipation Time Seen by Provider: 09/15/18 03:08 Source: patient Mode of arrival: ambulatory Limitations: no limitations History of Present Illness HPI narrative: Patient is a 53-year-old female. Was seen 3 days ago by her primary provider for constipation issues. Had a CT scan which showed what appeared to be obstipation but no other signs of obstruction. She was seen here in the emergency department yesterday for urinary retention and continued constipation issues. She did have Quesada catheter in place which did seem to improve some of her symptoms however she did not have a bowel movement here in the emergency department. Had a abdominal x-ray which again showed severe constipation. According to the note from yesterday there was no stool in the rectal vault. There is no attempt at an enema. The Quesada catheter was removed prior to her discharge. Patient returns for continued rectal pain and also stating that she has not had a urination since the catheter was removed. Related Data Home Medications Medication Instructions Recorded Confirmed valacyclovir [Valtrex] 1,000 mg PO BID #0 01/28/16 buprenorphine-naloxone 1 film SUBLINGUAL DAILY 09/14/18 escitalopram oxalate 20 mg PO DAILY 09/14/18 09/14/18 gabapentin 300 mg PO QID 09/14/18 09/14/18 naloxone [Narcan] 1 spray INTRANASAL PRN PRN 09/14/18 09/14/18 Previous Rx's Medication Instructions Recorded amoxicillin-pot clavulanate 1 tab PO Q12H #10 tab 09/14/18 [Augmentin] bisacodyl 10 mg [place] DAILY PRN #12 each 09/15/18 metoclopramide HCl [Reglan] 10 mg PO Q6H PRN #14 tab 09/15/18 Allergies Allergy/AdvReac Type Severity Reaction Status Date / Time No Known Drug Allergies Allergy Verified 09/14/18 13:26 Review of Systems Constitutional Denies fever(s) and Denies headache(s) ENT Ears, Nose, Mouth, and Throat: Denies headache(s) Cardiovascular Denies chest pain and Denies dyspnea Respiratory Denies dyspnea Gastrointestinal Gastrointestinal: Reports abdominal pain, Reports constipation, Denies nausea and Denies vomiting Comments: Rectal pain Genitourinary Comments: Urinary retention Musculoskeletal Denies myalgias and Denies arthralgias Integumentary/Breasts Denies rash Neurologic Denies headache(s) Hematologic/Lymphatic Denies easy bleeding and Denies easy bruising PFSH Medical History Borderline personality disorder (Chronic) Chronic fatigue syndrome with fibromyalgia (Chronic) Depression with anxiety (Chronic) History of pulmonary embolism (Chronic) Vitamin B12 deficiency (Chronic) Surgical History (Updated 09/14/18 @ 14:37 by Tiara Arzola PA-C) Status post biliopancreatic diversion with duodenal switch (Acute) Status post (Chronic) Status post cholecystectomy (Chronic) Status post hysterectomy (Chronic) Social History Smoking Status: Former smoker Social History Smoking Status: Former smoker Exam Initial Vital Signs Initial Vital Signs: Vital Signs Temperature 97.7 F 09/15/18 03:10 Pulse Rate 63 09/15/18 03:10 Respiratory Rate 20 09/15/18 03:10 Blood Pressure 194/104 H 09/15/18 03:10 Pulse Oximetry 100 09/15/18 03:10 Const General: cooperative, well developed, well groomed and No acute distress Orientation: alert and awake HENMT Head: normal to inspection and atraumatic Resp Effort & Inspection: normal respiratory effort Auscultation: clear to auscultation bilaterally Cardio Rate: regular rate Rhythm: regular rhythm GI Palpation: soft, No firm and tender Rectal Exam: No hemorrhoids Other: Was able to palpate stool in the rectal vault however was fairly high Neuro General: alert and awake Cognition: normal cognition Extrem General: normal to inspection and capillary refill normal Psych Appearance: grossly normal and well kempt Course Orders Ordered: Discontinued Medications Diazepam (Valium) 5 mg PO NOW ONE Stop: 09/15/18 04:55 Last Admin: 09/15/18 05:07 Dose: 5 mg Sodium Biphosphate/Sodium Phosphate (Fleet Enema) 1 each [place] NOW ONE Stop: 09/15/18 04:55 Last Admin: 09/15/18 05:55 Dose: Not Given Vital Signs - 8 hr 09/15/18 03:10 Temperature 97.7 F Pulse Rate 63 Respiratory Rate 20 Blood Pressure 194/104 H Pulse Oximetry 100 Medical Decision Making MDM Narrative Medical decision making narrative: Upon arrival bladder scan showed greater than 300 cc of urine in the bladder. Patient states that she felt like she needed to urinate but was unable to. A Quesada catheter was placed. We will keep the Quesada catheter in since she failed a due to avoid. She was given care instructions and follow-up instructions with regard to this. Patient has had a CT scan done 3 days ago an x-ray done yesterday. The x-ray yesterday showed abundant colonic gas. I did discuss the case with Dr. Montgomery with General surgery. We do have low suspicion that she has a bowel obstruction. I do suspect that this is obstipation. It appears that things are progressing somewhat because there was stool in the rectal vault during my rectal exam today and there was no reported this during the exam yesterday. Patient was unable to tolerate the soap suds enema secondary to pain. She was given a Valium then a 2nd attempt was tried with the Fleet's enema and patient was still unable to tolerate this. Will continue with lubricant laxatives to include mineral oil. Also sent home with to collect suppositories. Also sent home with Reglan. Patient was given return precautions. She expressed understanding and agreement plan. Discharge Plan Departure Patient Disposition: Home Clinical Impression: Acute urinary retention Constipation Qualifiers: Constipation type: unspecified constipation type Qualified Code(s): K59.00 - Constipation, unspecified Instructions: How to Care for Your Quesada Catheter -- Female Activity Restrictions/Additional Instructions: Recommend that you use mineral oil as a lubricant laxative. You can do 50 mL up to 3 times a day as needed. Also remember to stay hydrated. Use the suppositories as directed. Contact your primary doctor's office on Monday to discuss with the removal of the Quesada catheter. Return to the emergency department for any new or worsening symptoms. Prescriptions: New bisacodyl 10 mg suppository 10 mg [place] DAILY PRN (Reason: constipation) Qty: 12 RF: 0 metoclopramide HCl [Reglan] 10 mg tablet 10 mg PO Q6H PRN (Reason: nausea and vomiting) Qty: 14 RF: 0 No Action valacyclovir [Valtrex] 1,000 MG tablet 1,000 mg PO BID Qty: 0 RF: 0 gabapentin 300 mg capsule 300 mg PO QID RF: 0 escitalopram oxalate 20 mg tablet 20 mg PO DAILY RF: 0 buprenorphine-naloxone 8-2 mg film 1 film sublingual DAILY RF: 0 Narcan 4 mg/actuation spray,non-aerosol 1 spray intranasal PRN PRN (Reason: Opiate Reversal) RF: 0 amoxicillin-pot clavulanate [Augmentin] 500-125 mg tablet 1 tab PO Q12H Qty: 10 RF: 0 Referrals: Jazmyn Sánchez MD [Primary Care Provider] -
[2018-09-15 03:10] VITALS: BP 194/104; PULSE 63; RESP 20; TEMP 36.5; O2SAT 100; BMI 20.9
[2018-09-15] MEDS: diazePAM 5 MG TABLET PO (05:07)
--- NOTE | 2018-09-15 06:17 | PC.NURSE ---
Dr Maharaj discussing case with Dr. Acevedo at this time.
[2018-09-15 06:40] VITALS: BP 119/78; PULSE 68; RESP 15; O2SAT 100
== END 2018-09-15 06:49 | disposition home or self-care (01) ==
PROVIDERS: Emergency Provider Emergency Medicine; PCP Internal Medicine
DX: K59.00 Constipation, unspecified (principal); R10.9 Unspecified abdominal pain
CPT/HCPCS: 51701; 51798; 99283

== ENCOUNTER → 2019-01-25 13:48 | Outpatient (CLI) | payer MEDICARE, MEDICAID, SELFPAY ==
[2019-01-25 14:34] LABS: Add Manual Diff / Slide Review NO; Basophils Absolute Auto 100 /uL (0-100); Basophils Percent Auto 0.8 % (0-2); Eosinophils Absolute Auto 100 /uL (0-450); Eosinophils Percent Auto 0.7 % (2-4); Hematocrit 31.5 % (36-46); Hemoglobin 9.9 g/dL (12.0-16.0); Lymphocytes Absolute Auto 3500 /uL (1100-4500); Lymphocytes Percent Auto 40.2 % (25-40); Mean Corpuscular HGB Conc 31.3 % (30-36); Mean Corpuscular Hemoglobin 23.3 PG (26-34); Mean Corpuscular Volume 74.3 fL (80-100); Monocytes Absolute Auto 700 /uL (0-900); Monocytes Percent Auto 7.7 % (3-14); Neutrophils Absolute Auto 4400 /uL (1500-7000); Neutrophils Percent Auto 50.6 % (50-75); Platelet Count 243 X10^3/uL (150-400); Red Blood Cell Count 4.25 X10^6/uL (4.0-5.2); Red Cell Distribution Width 19.9 % (11.6-14.8); White Blood Cell Count 8.8 X10^3/uL (4.5-11.0)
[2019-01-25 14:53] LABS: Erythrocyte Sedimentation Rate 19 MM/HR (0-20)
[2019-01-25 15:37] LABS: Alanine Aminotransferase 23 IU/L (<35); Albumin 4.3 g/dL (3.5-5.0); Albumin Globulin Ratio 1.6 (1.0-2.8); Alkaline Phosphatase 97 U/L (38-126); Aspartate Aminotransferase 32 IU/L (14-36); Bilirubin Total 0.3 mg/dL (0.2-1.3); Blood Urea Nitrogen 22 mg/dL (7-17); Calcium 9.3 mg/dL (8.4-10.2); Carbon Dioxide 27 mmol/L (22-32); Chloride 102 mmol/L (98-107); Globulin 2.7 g/dL (1.7-4.1); Glucose 84 mg/dL (70-100); HEMOLYSIS < 15 (0-50); Potassium 4.4 mmol/L (3.4-5.1); Sodium 140 mmol/L (137-145)
[2019-01-25 16:12] LABS: Ferritin 5.3 ng/mL (11.1-264)
[2019-01-25 16:43] LABS: Folate 7.1 ng/mL (2.76-20.0); Vitamin B12 413 pg/mL (239-931)
[2019-01-30 20:41] LABS: Magnesium, RBC 4.3 mg/dL (4.0-6.4)
== END ==
PROVIDERS: PCP Internal Medicine; Visit Provider Registered Nurse
DX: L30.9 Dermatitis, unspecified (principal); Z79.899 Other long term (current) drug therapy; L29.9 Pruritus, unspecified
CPT/HCPCS: 36415; 80053; 82607; 82728; 82746; 83735; 85025; 85651

== ENCOUNTER 2019-08-22 14:28 | Emergency (ER) | payer MEDICARE, MEDICAID, SELFPAY ==
[2019-08-22 14:30] VITALS: BP 144/62; PULSE 83; RESP 14; TEMP 36.6; O2SAT 99; BMI 20.5
--- NOTE | 2019-08-22 15:03 | ED.DENTAL ---
HPI - Dental/Oral <HIEN Baumann - Last Filed: 08/22/19 15:16> General Chief complaint: Dental/Oral Stated complaint: lt side face swollen Time Seen by Provider: 08/22/19 14:36 Source: patient Mode of arrival: Ambulatory Limitations: no limitations History of Present Illness HPI Narrative: 54yo female history of caries, presents emergency department complaining of left-sided tooth pain and facial swelling starting today. She states she was on amoxicillin last month for dental infection and has been trying to schedule an appointment with a dentist. She is currently working on scheduling appointment with the dentist in [place]. This morning she noticed the left side of her chin was swollen believes this is most likely related to her tooth. She denies any difficulty swallowing, tongue swelling, wheezing, difficulty breathing, fevers, chills, nausea, vomiting, diarrhea, or any other concerns. She does report she has left lower sided tooth pain that is worse with chewing on that side or significant temperature changes. Related Data Home Medications Medication Instructions Recorded Confirmed valacyclovir [Valtrex] 1,000 mg PO BID #0 01/28/16 buprenorphine-naloxone 1 film SUBLINGUAL DAILY 09/14/18 escitalopram oxalate 20 mg PO DAILY 09/14/18 09/14/18 gabapentin 300 mg PO QID 09/14/18 09/14/18 naloxone [Narcan] 1 spray INTRANASAL PRN PRN 09/14/18 09/14/18 Previous Rx's Medication Instructions Recorded amoxicillin-pot clavulanate 1 tab PO Q12H #10 tab 09/14/18 [Augmentin] bisacodyl 10 mg DC DAILY PRN #12 each 09/15/18 metoclopramide HCl [Reglan] 10 mg PO Q6H PRN #14 tab 09/15/18 amoxicillin-pot clavulanate 1 tab PO BID 7 Days #14 tab 08/22/19 [Augmentin] prednisone 20 mg PO DAILY 5 Days #6 tab 08/22/19 Allergies Allergy/AdvReac Type Severity Reaction Status Date / Time No Known Drug Allergies Allergy Verified 08/22/19 14:35 Review of Systems <HIEN Baumann - Last Filed: 08/22/19 15:16> Review of Systems Narrative: REVIEW OF SYSTEMS: GENERAL: Denies fever or chills. HENT: Denies head trauma. Reports left-sided dental pain and facial swelling, see HPI. Denies difficulty swallowing or swollen tongue. EYE: Denies double vision or vision loss. CARDIOVASCULAR: Denies syncope. MUSCULOSKELETAL: Denies weakness, or deformities. INTEGUMENTARY: Denies lacerations or hives. Denies pruritus. NEURO: Denies numbness or tingling. Patient History <HIEN Baumann - Last Filed: 08/22/19 15:16> Medical History Borderline personality disorder (Chronic) Chronic fatigue syndrome with fibromyalgia (Chronic) Depression with anxiety (Chronic) History of pulmonary embolism (Chronic) Vitamin B12 deficiency (Chronic) Surgical History Status post biliopancreatic diversion with duodenal switch (Acute) Status post (Chronic) Status post cholecystectomy (Chronic) Status post hysterectomy (Chronic) Social History Smoking Status: Former smoker Smoking Status: Former smoker Substance Use Type: does not use Exam <HIEN Baumann - Last Filed: 08/22/19 15:16> Initial Vital Signs Initial Vital Signs: Vital Signs Temperature 97.9 F 08/22/19 14:30 Pulse Rate 83 08/22/19 14:30 Respiratory Rate 14 08/22/19 14:30 Blood Pressure 144/62 H 08/22/19 14:30 Pulse Oximetry 99 08/22/19 14:30 PHYSICAL EXAMINATION: GENERAL: Well groomed, alert, and cooperative. Answers questions promptly and appropriately. Vital signs noted. HENT: Normocephalic, atraumatic. Multiple lower caries noted. Swelling and gingivitis noted to tooth 19-20. Moderate amount of swelling noted to left jawline that extends to left side of chin. No significant erythema to this area, small amount of tenderness with palpation, no fluctuation. No lesions. No intraoral swelling, tongue normal size, voice within normal limits without hoarseness. Patient maintaining secretions. EYES: Conjunctiva pink, sclera white, no periorbital swelling. CHEST: Normal to inspection and without deformities. CARDIOVASCULAR: S1 and S2 sounds normal. Regular rate and rhythm, no murmurs, clicks, or bruits. No pedal edema. RESPIRATORY: Normal respiratory rate, trachea midline, airway patent. No stridor, nasal flaring or accessory muscle use. Lungs are clear in all mathur without wheeze, rhonchi, or crackles. MUSCULOSKELETAL: Normal gait and coordination. Equal tone and mass bilaterally. EXTREMITIES: CMS intact. Moves all extremities. SKIN: Warm, dry, soft, appropriate color for ethnicity. No lesions, rashes, or wounds. No hives. NEURO: Alert and Oriented X 3. Good coordination. No ataxia, or sensory deficits, or cognitive issues. PSYCH: Appropriate affect and mood. <Albin Maharaj DO - Last Filed: 08/22/19 15:21> Initial Vital Signs Initial Vital Signs: Vital Signs Temperature 97.9 F 08/22/19 14:30 Pulse Rate 83 08/22/19 14:30 Respiratory Rate 14 08/22/19 14:30 Blood Pressure 144/62 H 08/22/19 14:30 Pulse Oximetry 99 08/22/19 14:30 Course <HIEN Baumann - Last Filed: 08/22/19 15:16> Course Course Narrative: Had extensive conversation with patient about the importance of follow-up with a dentist to resolve this issue. Discussed the benefits and risks of steroids, patient opted to add steroids to the treatment to decrease swelling. She was extensively counseled to return emergency department for any worsening swelling, fevers, or difficulty breathing and except drip. Vital Signs Vital signs: Vital Signs - 8 hr 08/22/19 14:30 08/22/19 15:19 Temperature 97.9 F Pulse Rate 83 70 Respiratory Rate 14 16 Blood Pressure 144/62 H 127/71 Pulse Oximetry 99 97 <Albin Maharaj DO - Last Filed: 08/22/19 15:21> Vital Signs Vital signs: Vital Signs - 8 hr 08/22/19 14:30 08/22/19 15:19 Temperature 97.9 F Pulse Rate 83 70 Respiratory Rate 14 16 Blood Pressure 144/62 H 127/71 Pulse Oximetry 99 97 [facility] - Dental/Oral <HIEN Baumann - Last Filed: 08/22/19 15:16> Medical Records Attestation: I reviewed the patient's medical records. Lab Data Attestation: I reviewed the patient's lab results. [facility] Narrative Medical decision making narrative: 54-year-old female presents emergency department with left facial swelling and dental pain. Caries and tooth infection visualized, area tender. Swelling it to left jawline dry suspect is caused from the dental infection. Less likely cellulitis due to lack of erythema, increased temp, or significant tenderness with palpation to the swelling and left-sided face. Less likely abscess due to lack of fluctuation with deep palpation. Less likely allergic reaction for concern for airway compromise as patient is maintaining secretions, patient without hoarse voice, and is able to swallow without difficulty, and no intraoral swelling noted. Patient is hemodynamically stable without concerns of systemic infection such as tachycardia or fever. Thus no CT indicated at this time. Patient was started on Augmentin as she was previously on amoxicillin a few weeks ago. She was given prednisone after discussion of risks and benefits to help with swelling. Patient was extensively counseled about the need to follow up with her dentist for further treatment. Strict return precautions given for new or worsening symptoms. Patient agreed to plan of care verbalized understanding. Discharge Plan Departure Patient Disposition: Home Clinical Impression: Dental infection Discharge Date/Time: 08/22/19 15:20 Instructions: DI for Tooth Abscess, DI for Dental Pain Activity Restrictions/Additional Instructions: Thank you for entrusting me with your care today. As discussed, I suspect the swelling in your face most likely caused by dental infection. I prescribed you antibiotics. Due to your facial swelling, I prescribed you a small amount of steroids. Please call your dentist immediately to schedule an appointment for further evaluation. These medications were sent to [facility]. Return emergency department immediately if you develop any new or worsening symptoms such as difficulty swallowing, severe pain, fevers, increased swelling, or any other concerns. Prescriptions: New amoxicillin-pot clavulanate [Augmentin] 875-125 mg tablet 1 tab PO BID 7 Days Qty: 14 RF: 0 prednisone 20 mg tablet 20 mg PO DAILY 5 Days Qty: 6 RF: 0 No Action valacyclovir [Valtrex] 1,000 MG tablet 1,000 mg PO BID Qty: 0 RF: 0 bisacodyl 10 mg suppository 10 mg DC DAILY PRN (Reason: constipation) Qty: 12 RF: 0 metoclopramide HCl [Reglan] 10 mg tablet 10 mg PO Q6H PRN (Reason: nausea and vomiting) Qty: 14 RF: 0 gabapentin 300 mg capsule 300 mg PO QID RF: 0 escitalopram oxalate 20 mg tablet 20 mg PO DAILY RF: 0 buprenorphine-naloxone 8-2 mg film 1 film sublingual DAILY RF: 0 Narcan 4 mg/actuation spray,non-aerosol 1 spray intranasal PRN PRN (Reason: Opiate Reversal) RF: 0 amoxicillin-pot clavulanate [Augmentin] 500-125 mg tablet 1 tab PO Q12H Qty: 10 RF: 0 Referrals: Jazmyn Sánchez MD [Primary Care Provider] - <Albin Maharaj, - Last Filed: 08/22/19 15:21> [facility]: Dr Maharaj Co-Sign Statement: I was available for consultation during this patient's emergency department visit. This chart is signed by myself for administrative purposes only. I did not have direct contact with this patient during this visit. They were seen independently by the APC.
[2019-08-22 15:19] VITALS: BP 127/71; PULSE 70; RESP 16; O2SAT 97
== END 2019-08-22 15:20 | disposition home or self-care (01) ==
PROVIDERS: Emergency Provider Nurse Practitioner; PCP Internal Medicine
DX: K04.7 Periapical abscess without sinus (principal)
CPT/HCPCS: 99281